=== PATIENT | female | born 1955 | race African-American/Black ===

== ENCOUNTER 2021-01-15 07:12 | Day surgery (SDC) | payer BC ==
[~2021-01-15 07:12] MED LIST: ASPIRIN325 MG PO; ATORVASTATIN CA80 MG PO; METFORMIN500 MG PO
[2021-01-15 09:48] VITALS: BP 151/70
== END 2021-01-15 10:06 | disposition home or self-care (01) | DRG 951 ==
LOC: ENDO 07:12
PROVIDERS: ATTEND Surgery
PROC: 0DJD8ZZ Inspection of Lower Intestinal Tract, Via Natural or Artificial Opening Endoscopic (ICD-10-PCS; principal; 2021-01-15)
DX: Z12.11 Encounter for screening for malignant neoplasm of colon (principal); K64.8 Other hemorrhoids; F17.210 Nicotine dependence, cigarettes, uncomplicated